=== PATIENT | female | born 1965 | race Asian ===

== ENCOUNTER 2016-08-09 08:52 | Emergency (ER) | payer MEDICARE, OTHER ==
[~2016-08-09] VITALS: Ht 167.6 cm; Wt 89.0 kg
[~2016-08-09 08:52] MED LIST: CARV3.1262 PO; INSLAN SQ; LISI10TA PO
[2016-08-09] MEDS ORDERED: HUMLIS7525 SQ (09:02)
[2016-08-09 09:30] LABS: INFLUENZA TYPE B NEGATIVE FOR TYPE B (NEGATIVE)
[2016-08-09] MEDS ORDERED: OSELTAMIVIR PHOSPHATE 75 MG CAPSULE PO ONE (10:00)
[2016-08-09 11:16] VITALS: BP 154/77
== END 2016-08-09 11:17 | disposition home or self-care (01) ==
LOC: EMS 08:53
DX: J11.1 Influenza due to unidentified influenza virus with other respiratory manifestations (principal); E11.9 Type 2 diabetes mellitus without complications; I10 Essential (primary) hypertension; E78.00 Pure hypercholesterolemia, unspecified; Z79.4 Long term (current) use of insulin
CPT/HCPCS: 82962; 87804; 99284

== ENCOUNTER 2018-06-25 15:09 | Emergency (ER) | payer MEDICARE, OTHER ==
[~2018-06-25] VITALS: Ht 165.1 cm; Wt 90.9 kg
[~2018-06-25 15:09] MED LIST changes: -CARV3.1262 PO; +HUMLIS7525 SQ
[2018-06-25 16:03] LABS: BASOPHILS % (AUTO) 0.5 % (0.0-2.0); EOSINOPHILS % (AUTO) 2.5 % (1.0-6.0); HEMOGLOBIN 9.2 g/dL (12.0-16.0); LYMPHOCYTES # (AUTO) 2.1 K/uL (1.0-4.8); LYMPHOCYTES % (AUTO) 19.5 % (22.0-44.0); MEAN CORPUSCULAR HEMOGLOBIN 17.8 pg (26.0-34.0); MEAN CORPUSCULAR HGB CONC 29.7 G/dL (31.0-37.0); MEAN CORPUSCULAR VOLUME 60 fL (80-100); MONOCYTES # (AUTO) 0.7 K/uL (0.1-1.0); MONOCYTES % (AUTO) 6.8 % (2.0-9.0); NEUTROPHILS # (AUTO) 7.5 K/uL (1.8-7.7); NEUTROPHILS % (AUTO) 70.7 % (40.0-70.0); PLATELET COUNT (AUTO) 291 K/uL (150-450); RED BLOOD CELL COUNT(AUTO) 5.17 MIL/uL (4.00-5.20)
[2018-06-25 16:10] LABS: ANION GAP 6 mmol/L (8-16); CALCIUM, TOTAL 8.3 mg/dL (8.8-10.5); CARBON DIOXIDE 29 mmol/L (22-29); CHLORIDE 104 mmol/L (98-107); CREATININE 0.65 mg/dL (0.60-1.30); GLOMERULAR FILTR. RATE CALC > 60 mL/min (>60); GLUCOSE,RANDOM 91 mg/dL (70-110); POTASSIUM 3.9 mmol/L (3.5-5.1); SODIUM SERUM 139 mmol/L (136-145); UREA NITROGEN, BLOOD 11 mg/dL (7-18)
[2018-06-25 16:25] LABS: ALANINE AMINOTRANSFERASE 18 U/L (12-78); ALBUMIN 2.6 g/dL (3.4-5.0); ALKALINE PHOSPHATASE 101 U/L (46-116); ASPARTATE AMINOTRANSFERASE 22 U/L (15-37); B-TYPE NATRIURETIC PEPTIDE 186 pg/mL (0-100); BILIRUBIN,TOTAL 0.3 mg/dL (0.1-1.0); TOTAL PROTEIN, SERUM 6.9 g/dL (6.4-8.2)
[2018-06-25 16:27] LABS: PLATELET MORPHOLOGY COMMENT NORMAL
[2018-06-25] MEDS ORDERED: BENZONATATE 100 MG CAPSULE PO ONE (18:00)
[2018-06-25] MEDS ORDERED: ALBUTEROL SULFATE HFA 90 MCG/PUFF 8 GM INHALER IH ONE (18:00)
[2018-06-25] MEDS ORDERED: GuaiFENesin SR 600 MG ER TABLET PO ONE (18:00)
[2018-06-25 19:24] VITALS: BP 160/80
== END 2018-06-25 19:25 | disposition home or self-care (01) ==
LOC: EMS 15:10
DX: J40 Bronchitis, not specified as acute or chronic (principal); I10 Essential (primary) hypertension; E11.9 Type 2 diabetes mellitus without complications; E78.00 Pure hypercholesterolemia, unspecified; Z79.4 Long term (current) use of insulin
CPT/HCPCS: 93005; J3535

== ENCOUNTER 2019-04-11 14:06 | Emergency (ER) | payer MEDICARE, OTHER ==
[~2019-04-11] VITALS: Ht 167.6 cm; Wt 90.9 kg
[2019-04-11] MEDS ORDERED: LOSA25TA41 PO (14:21)
[2019-04-11] MEDS ORDERED: ATOR40TA28 PO (14:21)
[2019-04-11 14:26] LABS: GLUCOSE,POINT OF CARE 418 MG/DL (70-110)
[2019-04-11] MEDS ORDERED: SODIUM CHLORIDE 0.9% 1,000 ML IV ONE (15:30)
[2019-04-11 15:52] LABS: BASOPHILS % (AUTO) 0.5 % (0.0-2.0); EOSINOPHILS % (AUTO) 1.1 % (1.0-6.0); HEMATOCRIT 36.2 % (36-46); HEMOGLOBIN 11.1 g/dL (12.0-16.0); LYMPHOCYTES % (AUTO) 28.4 % (22.0-44.0); MEAN CORPUSCULAR HEMOGLOBIN 21.2 pg (26.0-34.0); MEAN CORPUSCULAR HGB CONC 30.7 G/dL (31.0-37.0); MEAN CORPUSCULAR VOLUME 69 fL (80-100); MONOCYTES # (AUTO) 0.6 K/uL (0.1-1.0); MONOCYTES % (AUTO) 8.5 % (2.0-9.0); NEUTROPHILS # (AUTO) 4.3 K/uL (1.8-7.7); NEUTROPHILS % (AUTO) 61.5 % (40.0-70.0); PLATELET COUNT (AUTO) 296 K/uL (150-450); RED BLOOD CELL COUNT(AUTO) 5.24 MIL/uL (4.00-5.20); RED CELL DISTRIBUTION WIDTH 18.5 % (11.5-14.5)
[2019-04-11 16:10] LABS: CREATININE 1.02 mg/dL (0.60-1.30); POTASSIUM 3.7 mmol/L (3.5-5.1)
[2019-04-11 16:16] LABS: ALBUMIN 3.1 g/dL (3.4-5.0); BILIRUBIN,TOTAL 0.4 mg/dL (0.1-1.0); TOTAL PROTEIN, SERUM 7.3 g/dL (6.4-8.2)
[2019-04-11 16:28] LABS: PLATELET MORPHOLOGY COMMENT LARGE PLTS PRESENT
[2019-04-11] MEDS ORDERED: DiphenhydrAMINE HCL 50 MG/ML VIAL IVP ONE (16:30)
[2019-04-11 17:40] LABS: APPEARANCE,URINE CLEAR (CLEAR); BILIRUBIN,URINE NEGATIVE (NEGATIVE); GLUCOSE, URINE (UA) >=1000 mg/dL (NEGATIVE); KETONES,URINE NEGATIVE (NEGATIVE); LEUKOCYTE ESTERASE ,URINE NEGATIVE (NEGATIVE); NITRATE,URINE NEGATIVE (NEGATIVE); OCCULT BLOOD,URINE NEGATIVE (NEGATIVE); PH,URINE 6.5 (5.0-8.0); PROTEIN,URINE NEGATIVE (NEGATIVE)
[2019-04-11 17:49] LABS: BACTERIA,URINE None Seen /HPF (None Seen); RBC,URINE None Seen /HPF (0-2); WBC,URINE None Seen /HPF (0-5)
[2019-04-11 17:50] LABS: SQUAMOUS EPITHELIAL CELL,UR Rare /LPF (None Seen)
[2019-04-11 18:44] LABS: GLUCOSE,POINT OF CARE 247 MG/DL (70-110)
[2019-04-11 18:49] VITALS: BP 137/79
== END 2019-04-11 19:20 | disposition home or self-care (01) ==
LOC: EMS 14:08
DX: E86.0 Dehydration (principal); E11.65 Type 2 diabetes mellitus with hyperglycemia; R19.7 Diarrhea, unspecified; R11.2 Nausea with vomiting, unspecified; R10.13 Epigastric pain; I10 Essential (primary) hypertension; E78.00 Pure hypercholesterolemia, unspecified; Z79.4 Long term (current) use of insulin
CPT/HCPCS: 36415; 74022; 80053; 81001; 82962; 83690; 83880; 84484; 85025; 93005; 96360; 99285; J7030; J1200

== ENCOUNTER 2020-07-10 11:57 | Emergency (ER) | payer OTHER ==
[~2020-07-10] VITALS: Ht 167.6 cm; Wt 97.7 kg
[~2020-07-10 11:57] MED LIST changes: +ASPI81TA39 PO; +ATOR40TA28 PO; -HUMLIS7525 SQ; -LISI10TA PO; +LOSA25TA21 PO
[2020-07-10 12:17] LABS: GLUCOSE,POINT OF CARE 133 MG/DL (70-110)
[2020-07-10 13:15] LABS: BASOPHILS % (AUTO) 0.6 % (0.0-2.0); EOSINOPHILS % (AUTO) 0.5 % (1.0-6.0); HEMATOCRIT 41.1 % (36-46); HEMOGLOBIN 13.4 g/dL (12.0-16.0); LYMPHOCYTES # (AUTO) 1.3 K/uL (1.0-4.8); LYMPHOCYTES % (AUTO) 21.4 % (22.0-44.0); MEAN CORPUSCULAR HEMOGLOBIN 27.3 pg (26.0-34.0); MEAN CORPUSCULAR HGB CONC 32.6 G/dL (31.0-37.0); MEAN CORPUSCULAR VOLUME 84 fL (80-100); MONOCYTES # (AUTO) 0.7 K/uL (0.1-1.0); MONOCYTES % (AUTO) 11.1 % (2.0-9.0); NEUTROPHILS % (AUTO) 66.4 % (40.0-70.0); PLATELET COUNT (AUTO) 210 K/uL (150-450); RED CELL DISTRIBUTION WIDTH 15.6 % (11.5-14.5)
[2020-07-10 13:25] LABS: ANION GAP 8 mmol/L (8-16); CARBON DIOXIDE 28 mmol/L (22-29); CHLORIDE 104 mmol/L (98-107); CREATININE 0.73 mg/dL (0.60-1.30); GLOMERULAR FILTR. RATE CALC > 60 mL/min (>60); GLUCOSE,RANDOM 122 mg/dL (70-110); POTASSIUM 4.3 mmol/L (3.5-5.1); SODIUM SERUM 140 mmol/L (136-145); UREA NITROGEN, BLOOD 14 mg/dL (7-18)
[2020-07-10 13:31] LABS: ALANINE AMINOTRANSFERASE 36 U/L (12-78); ALBUMIN 2.8 g/dL (3.4-5.0); ALKALINE PHOSPHATASE 104 U/L (46-116); ASPARTATE AMINOTRANSFERASE 25 U/L (15-37); BILIRUBIN,TOTAL 0.5 mg/dL (0.1-1.0); TOTAL PROTEIN, SERUM 6.9 g/dL (6.4-8.2)
[2020-07-10 13:48] LABS: B-TYPE NATRIURETIC PEPTIDE 8 pg/mL (0-100)
[2020-07-10 14:07] VITALS: BP 145/68
== END 2020-07-10 14:26 | disposition home or self-care (01) ==
LOC: EMS 12:12
DX: U07.1 COVID-19 (principal); E11.9 Type 2 diabetes mellitus without complications; E78.00 Pure hypercholesterolemia, unspecified; I10 Essential (primary) hypertension
CPT/HCPCS: 85379; 93005; 99285; 36415-L1; 36415-TC; 71045-TC

== ENCOUNTER 2021-04-01 09:59 | Emergency (ER) | payer OTHER ==
[~2021-04-01] VITALS: Ht 167.6 cm; Wt 100.5 kg
[2021-04-01 11:30] VITALS: BP 143/72
[2021-04-01] MEDS ORDERED: ACETAMINOPHEN 500 MG TABLET PO ONE (12:15)
[2021-04-01] MEDS ORDERED: MECLIZINE HCL 25 MG TABLET PO ONE (12:15)
[2021-04-01 12:27] LABS: BASOPHILS % (AUTO) 0.8 % (0.0-2.0); EOSINOPHILS % (AUTO) 3.1 % (1.0-6.0); HEMATOCRIT 42.4 % (36-46); HEMOGLOBIN 14.1 g/dL (12.0-16.0); LYMPHOCYTES # (AUTO) 1.7 K/uL (1.0-4.8); LYMPHOCYTES % (AUTO) 29.2 % (22.0-44.0); MEAN CORPUSCULAR HEMOGLOBIN 29.4 pg (26.0-34.0); MEAN CORPUSCULAR HGB CONC 33.2 G/dL (31.0-37.0); MEAN CORPUSCULAR VOLUME 89 fL (80-100); MONOCYTES # (AUTO) 0.5 K/uL (0.1-1.0); MONOCYTES % (AUTO) 8.8 % (2.0-9.0); NEUTROPHILS # (AUTO) 3.4 K/uL (1.8-7.7); NEUTROPHILS % (AUTO) 58.1 % (40.0-70.0); PLATELET COUNT (AUTO) 194 K/uL (150-450); RED CELL DISTRIBUTION WIDTH 13.5 % (11.5-14.5)
[2021-04-01 12:40] LABS: ANION GAP 5 mmol/L (8-16); CALCIUM, TOTAL 8.9 mg/dL (8.8-10.5); CARBON DIOXIDE 30 mmol/L (22-29); CHLORIDE 108 mmol/L (98-107); CREATININE 0.82 mg/dL (0.60-1.30); GLOMERULAR FILTR. RATE CALC > 60 mL/min (>60); GLUCOSE,RANDOM 161 mg/dL (70-110); POTASSIUM 4.3 mmol/L (3.5-5.1); SODIUM SERUM 143 mmol/L (136-145); UREA NITROGEN, BLOOD 13 mg/dL (7-18)
== END 2021-04-01 14:27 | disposition home or self-care (01) ==
LOC: EMS 09:59
DX: R42 Dizziness and giddiness (principal); R51.9 Headache, unspecified; R20.0 Anesthesia of skin; E11.9 Type 2 diabetes mellitus without complications; I10 Essential (primary) hypertension; E78.00 Pure hypercholesterolemia, unspecified; Z79.82 Long term (current) use of aspirin; Z79.899 Other long term (current) drug therapy; Z79.4 Long term (current) use of insulin
CPT/HCPCS: 70450; 80048; 85025; 93005; 99285

== ENCOUNTER 2021-07-06 16:32 | Emergency (ER) | payer OTHER ==
[~2021-07-06] VITALS: Ht 167.6 cm; Wt 99.0 kg
[~2021-07-06 16:32] MED LIST changes: +LOSA-370 PO; -LOSA25TA21 PO
[2021-07-06 17:47] VITALS: BP 126/69
== END 2021-07-06 20:10 | disposition left against medical advice (07) ==
LOC: EMS 17:21
DX: R10.9 Unspecified abdominal pain (principal); Z53.21 Procedure and treatment not carried out due to patient leaving prior to being seen by health care provider

== ENCOUNTER 2021-11-02 18:27 | Emergency (ER) | payer OTHER ==
[~2021-11-02] VITALS: Ht 167.6 cm; Wt 98.6 kg
[~2021-11-02 18:27] MED LIST changes: -LOSA-370 PO; +LOSA-381 PO
[2021-11-02] MEDS ORDERED: METF-1185 PO (18:34)
[2021-11-02] MEDS ORDERED: INSU100V SQ (18:34)
[2021-11-02 18:52] LABS: COVID AG,FIA SOURCE NASOPHARYNGEAL
[2021-11-02 19:00] LABS: APPEARANCE,URINE CLEAR (CLEAR); BILIRUBIN,URINE NEGATIVE (NEGATIVE); GLUCOSE, URINE (UA) NEGATIVE (NEGATIVE); KETONES,URINE NEGATIVE (NEGATIVE); LEUKOCYTE ESTERASE ,URINE NEGATIVE (NEGATIVE); NITRATE,URINE NEGATIVE (NEGATIVE); OCCULT BLOOD,URINE NEGATIVE (NEGATIVE); PROTEIN,URINE NEGATIVE (NEGATIVE); SPECIFIC GRAVITIY, URINE 1.012 (1.003-1.030); UROBILINOGEN,URINE <=1.0 mg/dL (<=1.0)
[2021-11-02 19:15] LABS: INFLUENZA TYPE A NEGATIVE FOR TYPE A (NEGATIVE); INFLUENZA TYPE B NEGATIVE FOR TYPE B (NEGATIVE)
[2021-11-02 19:57] VITALS: BP 135/71
== END 2021-11-02 20:12 | disposition home or self-care (01) ==
LOC: EMS 18:36
DX: U07.1 COVID-19 (principal); E11.9 Type 2 diabetes mellitus without complications; E78.00 Pure hypercholesterolemia, unspecified; I10 Essential (primary) hypertension; H54.61 Unqualified visual loss, right eye, normal vision left eye; Z98.41 Cataract extraction status, right eye
CPT/HCPCS: 81003; 82962; 87804; 99283

== ENCOUNTER 2022-08-07 20:40 | Emergency (ER) | payer OTHER ==
[~2022-08-07] VITALS: Ht 167.6 cm; Wt 98.6 kg
[~2022-08-07 20:40] MED LIST changes: +INSU100V SQ; +METF-1185 PO
[2022-08-07] MEDS ORDERED: KETOROLAC TROMETHAMINE 30 MG/ML VIAL IM ONE (22:45)
[2022-08-07] MEDS ORDERED: HYDROCODONE/ACETAMINOPHEN 5-325 MG TABLET PO ONE (22:45)
[2022-08-07 22:47] VITALS: BP 199/78
== END 2022-08-07 23:51 | disposition home or self-care (01) ==
LOC: EMS 20:41
DX: S20.212A Contusion of left front wall of thorax, initial encounter (principal); I10 Essential (primary) hypertension; E11.9 Type 2 diabetes mellitus without complications; E78.00 Pure hypercholesterolemia, unspecified; H54.7 Unspecified visual loss; Z98.890 Other specified postprocedural states; W18.40XA Slipping, tripping and stumbling without falling, unspecified, initial encounter; Y93.01 Activity, walking, marching and hiking; Y92.89 Other specified places as the place of occurrence of the external cause; Y99.8 Other external cause status
CPT/HCPCS: 99283; 71046; 96372; J1885

== ENCOUNTER 2022-10-22 11:55 | Emergency (ER) | payer OTHER ==
[~2022-10-22] VITALS: Ht 167.6 cm; Wt 90.9 kg
[2022-10-22] MEDS ORDERED: INSU100I3 SQ (12:06)
[2022-10-22] MEDS ORDERED: DULA4.5P SQ (12:06)
[2022-10-22] MEDS ORDERED: CARV12.530 PO (12:06)
[2022-10-22] MEDS ORDERED: FAMO20TA8 PO (12:06)
[2022-10-22] MEDS ORDERED: INSU3INS3 SQ (12:06)
[2022-10-22] MEDS ORDERED: LOSA100T59 PO (12:06)
[2022-10-22] MEDS ORDERED: ATOR40TA71 PO (12:06)
[2022-10-22] MEDS ORDERED: ALLO100T PO (12:06)
[2022-10-22] MEDS ORDERED: METF-1211 PO (12:06)
[2022-10-22] MEDS ORDERED: LIDOCAINE 5% TRANSDERMAL PATCH TD ONE (12:45)
[2022-10-22] MEDS ORDERED: ACETAMINOPHEN 500 MG TABLET PO ONE (12:45)
[2022-10-22 14:48] VITALS: BP 144/97
== END 2022-10-22 14:51 | disposition home or self-care (01) ==
LOC: EMS 12:55
DX: E11.9 Type 2 diabetes mellitus without complications (principal); E78.00 Pure hypercholesterolemia, unspecified; I10 Essential (primary) hypertension; H54.40 Blindness, one eye, unspecified eye; Z98.890 Other specified postprocedural states
CPT/HCPCS: 29515; 73503; 82962; 99284; 99285

== ENCOUNTER 2023-04-29 11:03 | Emergency (ER) | payer OTHER ==
[~2023-04-29] VITALS: Ht 167.6 cm; Wt 88.6 kg
[~2023-04-29 11:03] MED LIST changes: +ALLO100T PO; -ATOR40TA28 PO; +ATOR40TA71 PO; +CARV12.530 PO; +DULA4.5P SQ; +FAMO20TA8 PO; -INSLAN SQ; +INSU100I3 SQ; -INSU100V SQ; +INSU3INS3 SQ; -LOSA-381 PO; +LOSA100T59 PO; -METF-1185 PO; +METF-1211 PO
[2023-04-29 11:09] VITALS: TEMP 97.9
[2023-04-29 11:21] LABS: GLUCOMETER DEV NAME(LOC) ERT.5; GLUCOSE,POINT OF CARE 213 MG/DL (70-110)
[2023-04-29 12:18] LABS: BASOPHILS % (AUTO) 0.8 % (0.0-2.0); EOSINOPHILS % (AUTO) 2.2 % (1.0-6.0); HEMATOCRIT 41.7 % (36-46); HEMOGLOBIN 13.9 g/dL (12.0-16.0); LYMPHOCYTES # (AUTO) 1.9 K/uL (1.0-4.8); MEAN CORPUSCULAR HEMOGLOBIN 29.5 pg (26.0-34.0); MEAN CORPUSCULAR HGB CONC 33.4 G/dL (31.0-37.0); MEAN CORPUSCULAR VOLUME 89 fL (80-100); MONOCYTES # (AUTO) 0.4 K/uL (0.1-1.0); MONOCYTES % (AUTO) 7.8 % (2.0-9.0); NEUTROPHILS # (AUTO) 3.1 K/uL (1.8-7.7); NEUTROPHILS % (AUTO) 55.2 % (40.0-70.0); PLATELET COUNT (AUTO) 214 K/uL (150-450); RED BLOOD CELL COUNT(AUTO) 4.72 MIL/uL (4.00-5.20); RED CELL DISTRIBUTION WIDTH 13.9 % (11.5-14.5); WHITE BLOOD COUNT (AUTO) 5.7 K/uL (4.5-11.0)
[2023-04-29 12:33] LABS: ANION GAP 4 mmol/L (8-16); CALCIUM, TOTAL 8.7 mg/dL (8.8-10.5); CARBON DIOXIDE 30 mmol/L (22-29); CHLORIDE 106 mmol/L (98-107); CREATININE 1.07 mg/dL (0.60-1.30); GLOMERULAR FILTR. RATE CALC 53 mL/min (>60); GLUCOSE,RANDOM 216 mg/dL (70-110); POTASSIUM 3.7 mmol/L (3.5-5.1); SODIUM SERUM 140 mmol/L (136-145); UREA NITROGEN, BLOOD 15 mg/dL (7-18)
[2023-04-29 12:39] LABS: ALANINE AMINOTRANSFERASE 30 U/L (12-78); ALBUMIN 2.9 g/dL (3.4-5.0); ALKALINE PHOSPHATASE 153 U/L (46-116); ASPARTATE AMINOTRANSFERASE 20 U/L (15-37); BILIRUBIN,TOTAL 0.3 mg/dL (0.1-1.0); LIPASE 38 U/L (16-77); TOTAL PROTEIN, SERUM 6.8 g/dL (6.4-8.2)
[2023-04-29 12:40] LABS: LACTIC ACID 1.3 mmol/L (0.4-2.0); TROPONIN I-HIGH SENSITIVITY 9 ng/L (<51)
[2023-04-29 12:43] LABS: B-TYPE NATRIURETIC PEPTIDE 12 pg/mL (0-100)
[2023-04-29] MEDS ORDERED: ASPIRIN 325 MG TABLET PO ONE (13:30)
[2023-04-29] MEDS ORDERED: NITROGLYCERIN 0.4 MG SUBLINGUAL TABLET #25 SL ONE (13:30)
[2023-04-29] MEDS ORDERED: NITROGLYCERIN 2% (1 GM=INCH) OINTMENT PACKET TP ONE (13:30)
[2023-04-29] MEDS ORDERED: GABA-529 PO (13:31)
[2023-04-29] MEDS ORDERED: HYDR25TA PO (13:31)
[2023-04-29] MEDS ORDERED: FENO145T26 PO (13:31)
[2023-04-29 14:03] VITALS: BP 138/72; PULSE 67; RESP 16
[2023-04-29 15:08] LABS: COVID AG,FIA SOURCE NASAL SWAB
[2023-04-29 15:33] LABS: SARS-COV2 (COVID) ANTIGEN,FIA Negative (Negative)
== END 2023-04-29 16:12 | disposition still patient (30) ==
LOC: EMS 11:07
DX: E11.65 Type 2 diabetes mellitus with hyperglycemia (principal); R07.89 Other chest pain; E78.00 Pure hypercholesterolemia, unspecified; I10 Essential (primary) hypertension; Z98.890 Other specified postprocedural states; Z20.822 Contact with and (suspected) exposure to COVID-19
CPT/HCPCS: 70450; 71045; 80053; 82962; 83605; 83690; 83880; 84484; 85025; 93005; 99285; 36415-L1; 36415-TC

== ENCOUNTER 2024-07-03 18:15 | Inpatient (IN) | payer OTHER ==
[~2024-07-03] VITALS: Ht 167.6 cm; Wt 94.6 kg
[~2024-07-03 18:15] MED LIST changes: +FENO145T26 PO; +GABA-529 PO; +HYDR25TA PO
[2024-07-03] MEDS: CloNIDine HCL 0.2 MG TABLET PO ONE (18:35)
[2024-07-03 18:39] LABS: BASOPHILS % (AUTO) 0.6 % (0.0-2.0); EOSINOPHILS % (AUTO) 2.6 % (1.0-6.0); HEMATOCRIT 42.6 % (36-46); HEMOGLOBIN 14.1 g/dL (12.0-16.0); LYMPHOCYTES # (AUTO) 1.9 K/uL (1.0-4.8); LYMPHOCYTES % (AUTO) 23.8 % (22.0-44.0); MEAN CORPUSCULAR HEMOGLOBIN 29.3 pg (26.0-34.0); MEAN CORPUSCULAR HGB CONC 33.1 G/dL (31.0-37.0); MEAN CORPUSCULAR VOLUME 89 fL (80-100); MONOCYTES # (AUTO) 0.6 K/uL (0.1-1.0); MONOCYTES % (AUTO) 7.9 % (2.0-9.0); NEUTROPHILS # (AUTO) 5.3 K/uL (1.8-7.7); NEUTROPHILS % (AUTO) 65.1 % (40.0-70.0); PLATELET COUNT (AUTO) 181 K/uL (150-450); RED BLOOD CELL COUNT(AUTO) 4.81 MIL/uL (4.00-5.20); WHITE BLOOD COUNT (AUTO) 8.1 K/uL (4.5-11.0)
[2024-07-03 18:48] LABS: ANION GAP 11 mmol/L (8-16); CALCIUM, TOTAL 8.6 mg/dL (8.8-10.5); CARBON DIOXIDE 23 mmol/L (22-29); CHLORIDE 106 mmol/L (98-107); CREATININE 0.84 mg/dL (0.60-1.30); GLOMERULAR FILTR. RATE CALC > 60 mL/min (>60); GLUCOSE,RANDOM 238 mg/dL (70-110); POTASSIUM 4.2 mmol/L (3.5-5.1); SODIUM SERUM 140 mmol/L (136-145); UREA NITROGEN, BLOOD 13 mg/dL (7-18)
[2024-07-03] MEDS ORDERED: CARV25TA32 PO (18:48)
[2024-07-03] MEDS ORDERED: INSU100I26 SQ (18:48)
[2024-07-03] MEDS ORDERED: SEMA1PEN3 SQ (18:48)
[2024-07-03] MEDS ORDERED: HYDR25TA84 PO (18:48)
[2024-07-03] MEDS ORDERED: ESTR42.510 VG (18:48)
[2024-07-03 18:53] LABS: CREATINE KINASE, TOTAL ONLY 52 U/L (26-192)
[2024-07-03 18:55] LABS: TROPONIN I-HIGH SENSITIVITY 7 ng/L (<51)
[2024-07-03 18:57] LABS: B-TYPE NATRIURETIC PEPTIDE 35 pg/mL (0-100)
[2024-07-03] MEDS: HydrALAZINE HCL 20 MG/ML VIAL IVP ONE (19:07)
[2024-07-03] MEDS: ACETAMINOPHEN 500 MG TABLET PO ONE (21:10)
[2024-07-03 21:29] LABS: APPEARANCE,URINE CLEAR (CLEAR); BILIRUBIN,URINE NEGATIVE (NEGATIVE); COLOR,URINE LIGHT YELLOW (YELLOW); GLUCOSE, URINE (UA) 150-200 mg/dL (NEGATIVE); KETONES,URINE NEGATIVE (NEGATIVE); LEUKOCYTE ESTERASE ,URINE NEGATIVE (NEGATIVE); NITRATE,URINE NEGATIVE (NEGATIVE); OCCULT BLOOD,URINE NEGATIVE (NEGATIVE); PH,URINE 6.5 (5.0-8.0); PROTEIN,URINE NEGATIVE (NEGATIVE); SPECIFIC GRAVITIY, URINE 1.015 (1.003-1.030); UROBILINOGEN,URINE <=1.0 mg/dL (<=1.0)
[2024-07-03 21:36] LABS: BACTERIA,URINE Few /HPF (None Seen); RBC,URINE 0-2 /HPF (0-2); WBC,URINE 0-2 /HPF (0-5)
[2024-07-03] MEDS ORDERED: VITA-328 PO (22:48)
[2024-07-03] MEDS ORDERED: CETI-450 PO (22:48)
[2024-07-03] MEDS ORDERED: IBUP-45 PO (22:48)
[2024-07-04 02:40] VITALS: BP 141/86; PULSE 63; RESP 16; TEMP 97.8; O2SAT 98
[2024-07-04] MEDS ORDERED: INFLUENZA VIRUS VACCINE TVS (6MO+) 2024-25/PF 45 MCG/0.5 ML SYRINGE IM. ONE (04:00)
[2024-07-04 06:31] LABS: GLUCOMETER DEV NAME(LOC) 6S.2; GLUCOSE,POINT OF CARE 165 MG/DL (70-110)
[2024-07-04 07:45] VITALS: BP 149/69; PULSE 63; RESP 18; TEMP 97.9; O2SAT 99
[2024-07-04 11:28] VITALS: BP 140/63; PULSE 67; RESP 19; TEMP 98.7; O2SAT 99
[2024-07-04 13:53] VITALS: BP 156/76; PULSE 66; RESP 18; TEMP 98.7; O2SAT 99
[2024-07-04] MEDS ORDERED: DEXTROSE 50%-WATER 25 GM/50 ML SYRINGE IVP PRN (16:45)
[2024-07-04] MEDS ORDERED: GABAPENTIN 100 MG CAPSULE PO PRN (16:45)
[2024-07-04] MEDS: ASPIRIN 81 MG CHEWABLE TABLET PO SCH (17:29)
[2024-07-04] MEDS: INSULIN LISPRO 100 UNITS/ML SQ PRN (17:40)
[2024-07-04 19:06] LABS: GLUCOMETER DEV NAME(LOC) 6S.2; GLUCOSE,POINT OF CARE 266 MG/DL (70-110)
[2024-07-04 19:07] LABS: GLUCOMETER DEV NAME(LOC) 6S.2; GLUCOSE,POINT OF CARE 223 MG/DL (70-110)
[2024-07-04 19:07] LABS: GLUCOMETER DEV NAME(LOC) 6S.2; GLUCOSE,POINT OF CARE 248 MG/DL (70-110)
[2024-07-04 19:23] VITALS: BP 158/78; PULSE 69; RESP 20; TEMP 97.9; O2SAT 98
[2024-07-04 19:28] VITALS: BP 148/77; PULSE 67; RESP 20; TEMP 98.1; O2SAT 97
[2024-07-04] MEDS: CARVEDILOL 25 MG TABLET PO SCH (20:18)
[2024-07-04] MEDS: HydrALAZINE HCL 25 MG TABLET PO SCH (20:18)
[2024-07-05 00:31] LABS: GLUCOMETER DEV NAME(LOC) 6N.2B; GLUCOSE,POINT OF CARE 163 MG/DL (70-110)
[2024-07-05 04:23] VITALS: BP 132/56; PULSE 63; RESP 18; TEMP 97.5; O2SAT 99
[2024-07-05 06:30] LABS: GLUCOMETER DEV NAME(LOC) 6N.2B; GLUCOSE,POINT OF CARE 234 MG/DL (70-110)
[2024-07-05 08:17] VITALS: BP 141/77; PULSE 65; RESP 18; TEMP 98.1; O2SAT 100
[2024-07-05] MEDS: CETIRIZINE HCL 10 MG TABLET PO SCH (08:53)
[2024-07-05] MEDS: HYDROCHLOROTHIAZIDE 25 MG TABLET PO SCH (08:54)
[2024-07-05] MEDS: ATORVASTATIN CALCIUM 40 MG TABLET PO SCH (08:54)
[2024-07-05] MEDS: LOSARTAN POTASSIUM 50 MG TABLET PO SCH (08:54)
[2024-07-05] MEDS ORDERED: AMLO-257 PO (14:05)
[2024-07-05] MEDS ORDERED: ATOR40TA71 PO (14:05)
[2024-07-05] MEDS ORDERED: LOSA100T59 PO (14:05)
[2024-07-05] MEDS ORDERED: ASPI81TA39 PO (14:05)
[2024-07-05] MEDS ORDERED: CARV25TA32 PO (14:05)
[2024-07-05] MEDS ORDERED: HYDR25TA PO (14:05)
[2024-07-05] MEDS ORDERED: HYDR25TA84 PO (14:05)
[2024-07-05 14:30] VITALS: BP 150/88
[2024-07-05] MEDS: AmLODIPine BESYLATE 5 MG TABLET PO SCH (14:33)
[2024-07-05 20:31] LABS: GLUCOMETER DEV NAME(LOC) 6N.2B; GLUCOSE,POINT OF CARE 201 MG/DL (70-110)
== END 2024-07-05 18:46 | disposition home or self-care (01) | DRG 305 ==
LOC: EMS 18:15 → EDH 07-04 00:26 → 6S 07-04 02:07
PROVIDERS: ADMIT Hospitalist; ATTEND Hospitalist
DX: I16.1 Hypertensive emergency (principal); E78.00 Pure hypercholesterolemia, unspecified; E11.649 Type 2 diabetes mellitus with hypoglycemia without coma; I10 Essential (primary) hypertension; Z83.3 Family history of diabetes mellitus; Z79.82 Long term (current) use of aspirin; Z79.899 Other long term (current) drug therapy; Z98.891 History of uterine scar from previous surgery
CPT/HCPCS: 70450; 71045; 80048; 81001; 82550; 82962; 83880; 84484; 85025; 93005; 99285; J0360; 36415-L1; 36415-TC